=== PATIENT | male | born 1965 | race American Indian/Alaskan Native ===

== ENCOUNTER 2016-08-22 22:41 | Emergency (ER) | payer OTHER ==
[2016-08-22] MEDS ORDERED: ZOFRAN ODT ONE (23:47)
[2016-08-23 00:33] VITALS: BP 141/96
[2016-08-23] MEDS ORDERED: ZOFRAN ODT PO ONE (02:39)
[2016-08-23] MEDS ORDERED: NORCO 7.5/325 PO ONE (02:39)
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
[2016-08-23] MEDS ORDERED: MOTRIN PO ONE (02:53)
== END 2016-08-23 03:35 | disposition home or self-care (01) ==
LOC: ED 22:41
DX: M54.2 Cervicalgia (principal); M54.6 Pain in thoracic spine; Z72.0 Tobacco use; V89.2XXA Person injured in unspecified motor-vehicle accident, traffic, initial encounter; Y93.89 Activity, other specified; Y99.9 Unspecified external cause status; Y92.410 Unspecified street and highway as the place of occurrence of the external cause
CPT/HCPCS: 99283; Q0162